=== PATIENT | male | born 1990 | race Caucasian/White ===

== ENCOUNTER 2019-05-10 09:16 | Observation (INO) ==
--- NOTE | 2019-05-01 14:26 | PAT Medication Instructions ---
Medication Instructions Date of Service May 01, 2019 Home Medications Medication Instructions Recorded omeprazole 40 mg capsule,delayed 40 mg PO BID #180 cap 11/16/18 release hydrocodone 5 mg-acetaminophen 325 1 tab PO Q4H PRN 3 Days #18 tab 04/24/19 mg tablet omeprazole 40 mg capsule,delayed release 40 mg PO BID hydrocodone 5 mg-acetaminophen 325 mg tablet 1 tab PO Q4H PRN sertraline 25 mg PO QAM Take morning of surgery With a small sip of water, OTHERWISE NOTHING TO EAT OR DRINK AFTER MIDNIGHT: omeprazole 40 mg capsule,delayed release 40 mg PO BID hydrocodone 5 mg-acetaminophen 325 mg tablet 1 tab PO Q4H PRN (if needed, may be taken up to four hours before surgery) sertraline 25 mg PO QAM Other Notes If you have any questions please call us at [phone] or [phone] or [phone] or [phone]
--- NOTE | 2019-05-02 13:18 | Anesthesiology Consultation ---
Date of Service May 02, 2019 Assessment & Plan (1) Encounter for pre-operative examination: Chart Review Chart Review: Acceptable Risk for Surgery (pending pre op labs being done at [facility]) and Patient seen in Pre Admission Testing Teaching & Discussion Instructed NPO after midnight before surgery, except medications with 15 cc of water. Medication instructions provided according to the PAT guidelines. History Surgery Operation Date: 05/10/19 10:50 Proposed Procedures p Abdominoplasty - Jolene Walton MD Height/Weight Height: 5 ft 10 in Weight: 108.7 kg Allergies Allergy/AdvReac Type Severity Reaction Status Date / Time codeine Allergy HIVES Verified 05/02/19 13:11 morphine Allergy HIVES Verified 05/02/19 13:11 Medications Home Medications Medication Instructions Recorded Confirmed Last Taken omeprazole 40 mg capsule,delayed 40 mg PO BID #180 cap 11/16/18 04/28/19 Unknown release hydrocodone 5 mg-acetaminophen 325 1 tab PO Q4H PRN 3 Days #18 tab 04/24/19 04/28/19 Unknown mg tablet sertraline 25 mg PO QAM 04/28/19 04/28/19 Unknown Past Medical History Medical History (Updated 05/02/19 @ 13:16 by Jeffrey Louie) Asthma as child GERD (gastroesophageal reflux disease) Exercise / Class Metabolic Activity 1 > 8 Run/Swim/Ski/Tennis Past Surgical History Surgical History (Updated 05/02/19 @ 13:12 by Jeffrey Louie) History of esophagogastroduodenoscopy WITH DILITATION, SEVERAL TIMES History of liver biopsy age 13 dx fatty liver History of shoulder surgery right shoulder Past Anesthesia History No Hx of Anesthesia Complications and No Family Hx of Anesthesia Complications History of PONV No Hx of PONV and No Hx of Motion Sickness Social History Smoking Status: Never smoker Do You Dip or Chew Tobacco: No Hx Alcohol Use: No Hx Substance Use: No substance use type: does not use Review of Systems Pt denies any recent chest pain, shortness of breath, palpitations, cough, fever or URI. Physical Exam Vital Signs BP: 108/63 P: 65bpm SPO2: 97% RA T: 97.6 F R: 16 ENMT Mouth: + chipped teeth (one front upper) and + macroglossia; no dental restorations and no loose teeth Thyromental Distance: < 3.5 Finger Breadths (3) Mallampati Class: III Neck normal visual inspection; neck extension not limited Respiratory normal respiratory effort Auscultation: lungs clear to auscultation bilaterally Cardiovascular Rate/Rhythm: regular rate and regular rhythm Heart Sounds: no murmur
[~2019-05-10 09:16] MED LIST: CEFAZOLIN 2000MG 2,000 MG/15 ML SYR IV SCH; LR 15ML/HR IV SCH
[2019-05-10] MEDS ORDERED: ONDANSETRON INJ 2 MG/ML 2 ML VIAL IV PRN ×2 (10:19→14:45)
[2019-05-10] MEDS ORDERED: HYDROmorphone INJ 2 MG/ML SYR/VIAL IV PRN (10:19)
[2019-05-10] MEDS ORDERED: ePHEDrine sulfate 50 MG/ML AMP IV PRN (10:19)
[2019-05-10] MEDS ORDERED: ATROPINE SULFATE 0.1 MG/ML 10ML SYR IV PRN (10:19)
[2019-05-10] MEDS ORDERED: fentaNYL citrate 100 MCG/2 ML VIAL ONE (10:52)
[2019-05-10] MEDS ORDERED: MIDAZOLAM HCL 1 MG/ML 2ML VIAL ONE (10:52)
--- NOTE | 2019-05-10 11:04 | History & Physical Bridge Note ---
Date of Service May 10, 2019 History & Physical Bridge Note I have examined the patient, reviewed the History & Physical and in the interval since the performance of the History & Physical I have noted the following changes of clinical significance: no changes noted
[2019-05-10] MEDS ORDERED: LIDOCAINE/EPINEPHRINE 1% 20 ML VIAL ONE (11:24)
[2019-05-10] MEDS ORDERED: BUPIVACAINE 0.25% 30 ML VIAL ONE (11:24)
[2019-05-10] MEDS ORDERED: HYDROmorphone INJ 2 MG/ML SYR/VIAL ONE (12:09)
[2019-05-10] MEDS ORDERED: ACETAMINOPHEN 1000 MG/100 ML IV IV ONE (12:43)
[2019-05-10] MEDS ORDERED: ROCURONIUM BROMIDE 10 MG/ML 5 ML VIAL ONE (12:49)
[2019-05-10] MEDS ORDERED: KETAMINE HCL INJ 50 MG/ML 10 ML VIAL ONE (12:49)
[2019-05-10] MEDS ORDERED: ONDANSETRON INJ 2 MG/ML 2 ML VIAL ONE (13:10)
[2019-05-10] MEDS ORDERED: raNITIdine HCl 25 MG/ML VIAL IV ONE (13:10)
[2019-05-10] MEDS ORDERED: LARYING-O-JET KIT (LTA) ONE (13:10)
[2019-05-10] MEDS ORDERED: LIDOCAINE HCL 2% 2 ML VIAL/AMP(20MG/ML) INFIL ONE (13:10)
[2019-05-10] MEDS ORDERED: GLYCOPYRROLATE 0.2 MG/ML VIAL ONE (13:10)
[2019-05-10] MEDS ORDERED: METOCLOPRAMIDE HCL INJ 5 MG/ML 2 ML VIAL ONE (13:10)
[2019-05-10] MEDS ORDERED: PROPOFOL IV EMULSION 10 MG/ML 20 ML VIAL IV ONE (13:10)
[2019-05-10] MEDS ORDERED: DiphenhydrAMINE HCL 50 MG/ML VIAL ONE (13:10)
[2019-05-10] MEDS ORDERED: NEOSTIGMINE METHYLSULFATE 5 MG/5 ML SYR ONE (13:10)
--- NOTE | 2019-05-10 14:38 | Post Operative Brief Note ---
PG Immediate Post Op with CF Date of Surgery May 10, 2019 Pre & Post Diagnosis Operation Date: 05/10/19 10:50 Pre-Op Diagnosis: Encounter for Cosmetic Surgery Post-Op Diagnosis: Encounter for Cosmetic Surgery I identified the patient and participated in the time-out.: Yes Procedure Operation Date: 05/10/19 10:50 Actual Procedures p Abdominoplasty(Not Applicable) - Jolene Walton MD Surgeon Jolene Walton MD Candle Molder Jasmyne Hairston PA-C Estimated Blood Loss 20 Findings Consistent with Post-Op Diagnosis Specimens Specimen Description: none per surgeon Drains Stanford Catheter (16 Fr 10ml balloon LATEX free) and Gerardo-Espinosa Drain (x2)
[2019-05-10] MEDS ORDERED: DiphenhydrAMINE HCL 50 MG/ML VIAL IV PRN (14:45)
[2019-05-10] MEDS ORDERED: LORazepam 0.5 MG TAB PO PRN (14:45)
--- NOTE | 2019-05-10 14:45 | Operative Report ---
PG Post Operative Report Pre & Post Diagnosis Operation Date: 05/10/19 10:50 Pre-Op Diagnosis: Encounter for Cosmetic Surgery Post-Op Diagnosis: Encounter for Cosmetic Surgery I identified the patient and participated in the time-out.: Yes Procedure Operation Date: 05/10/19 10:50 Actual Procedures p Abdominoplasty(Not Applicable) - Jolene Walton MD Surgeon Jolene Walton MD Ion Exchange Operator Jasmyne Hairston PA-C Estimated Blood Loss 20 Findings Consistent with Post-Op Diagnosis Specimens none Drains ERLIN x2 Anesthesia Type General Complications none Disposition Disposition: Recovery Room Indications s/p massive weight loss, desiring cosmetic improvement in abdominal wall laxity Description of Procedure Risks, benefits, and alternatives of the procedure were explained to the patient who agreed and signed consent. He was identified and marked in the preoperative holding area. He was brought to the operating room where He was positioned supine and placed under general anesthesia without incident. Stanford catheter was placed. Surgical site was prepped and draped sterilely. A time-out procedure was performed. I reassessed my markings which included a lower horizontal abdominal incision at the waistline sulcus. Incision was marked bilaterally to the ASIS. I began by injecting 1% lidocaine with epinephrine along the planned incision. 15-blade scalpel was used to circumscribe the umbilicus. The lower abdominal incision was made using a 15-blade scalpel to incise epidermis and superficial dermis followed by electrocautery to incise deep dermis, subcutaneous fat, Harleen's fascia down to the abdominal wall. Care was taken to bevel superiorly in order to avoid encountering the inguinal region. Electrocautery was used to elevate the anterior abdominal skin flap ligating the perforating vessels with 3-0 Vicryl ties and electrocautery. Dissection was carried up to the level of the umbilicus in the midline. A vertical midline incision was then made from the incision to the umbilicus and divided in the midline using electrocautery. The umbilicus was then dissected out using electrocautery down to abdominal wall. The umbilical stalk appeared viable throughout the procedure. Dissection was continued superiorly to the xyphoid process, narrowing dissection above the umblicus. Plication of the rectus diastasis was performed using 0 Prolene [id number] sutures both above and below the umbilicus. It should be noted that this plication was performed to reapproximate the rectus muscles in the m idline, but not over tighten the area in order to avoid feminization of the waistline. Additionally, I only plicated the area of true visible diastasis, I did not plicate all the way to the xiphoid process. A running 0 Prolene suture was used to reinforce the repair both above and below the umbilicus. At this point, the bed was flexed and the mid portion of the superior skin flap was inset above the mons pubis using 2-0 Vicryl suture. Skin flaps were marked for excision. A 15-blade scalpel was used to make these incisions and the incision was deepened through dermis, subcutaneous fat, Harleen's fat using electrocautery. A 15 Maldivian Daniel drains were placed in the wound bed and brought out through a separate stab incision in the mons pubis. The drains were sutured into place using 3-0 nylon. The umbilicus was brought out through an inverted, rounded angled triangular incision in the abdominal wall. This was performed using a 15-blade scalpel. Prior to closure, a total of 10 mL of 0.25% Marcaine plain were injected into the fascia as well as along the incisions. Wound closure was then begun lateral to medial using 2-0 Vicryl Harleen's fascia sutures, 2-0 Vicryl deep dermal sutures, 2-0 PDO running superficial Quill suture, 3-0 Monocryl running subcuticular suture. Umbilicus was brought out through the inverted triangle incision and was sutured into place using 4-0 chromic half buried horizontal mattress sutures. The umbilicus was dressed using Xeroform and the incision was dressed using Dermabond Prineo followed by dry dressings and an abdominal binder. Patient tolerated the procedure well. He was extubated and transferred to the recovery room in satisfactory condition. Jasmyne Hairston PA-C was present and scrubbed throughout the entire procedure and was instrumental in providing retraction of the abdominal flap and assisting in simultaneous wound closure. I attest to the content of the Intraoperative Record and any orders documented therein. Any exceptions are noted below.
[2019-05-10] MEDS: fentaNYL citrate 100 MCG/2 ML VIAL IV PRN ×4 (14:50→15:05)
[2019-05-10] MEDS ORDERED: HYDROCODONE/ACETAMOPHEN 5/325MG TAB PO PRN (14:52)
[2019-05-10] MEDS ORDERED: MEPERIDINE HCL 50 MG/ML CARP IV PRN (14:57)
--- NOTE | 2019-05-10 15:22 | Anesthesiology Progress Note ---
Date of Service May 10, 2019 Anesthesia Post Procedure Vital Signs Vital Signs: Temp Pulse Pulse Resp BP BP Pulse Ox 05/10/19 15:15 98.8 F 80 16 136/74 98 05/10/19 15:05 89 16 135/70 94 05/10/19 14:55 74 16 134/68 98 05/10/19 14:46 100.0 F H 78 16 145/58 H 98 05/10/19 09:37 97.9 F 68 18 136/68 97 Transfer of Care Handoff Completed per policy Notes Mental Status: alert / awake / arousable and participated in evaluation Patient Amnestic to Procedure: Yes Nausea / Vomiting: adequately controlled Pain: adequately controlled Airway Patency, RR, SpO2: stable & adequate BP & HR: stable & adequate Hydration State: stable & adequate Anesthetic Complications: no major complications apparent and Pt Satisfied with anesthetic care
[2019-05-10] MEDS: D5W AND 1/2NSS + 20MEQ KCL 20 MEQ/1,000 ML BAG IV SCH (16:42)
[2019-05-10] MEDS: CEFAZOLIN 2000MG 2,000 MG/15 ML SYR IV SCH (19:44)
[2019-05-10] MEDS: PROMETHAZINE HCL 12.5 MG in SODIUM CHLORIDE 0.9% 50 ML IV PRN (20:52)
[2019-05-11] MEDS: D5W AND 1/2NSS + 20MEQ KCL 20 MEQ/1,000 ML BAG IV SCH (01:39)
[2019-05-11] MEDS: CEFAZOLIN 2000MG 2,000 MG/15 ML SYR IV SCH (03:55)
[2019-05-11] MEDS: PROMETHAZINE HCL 12.5 MG in SODIUM CHLORIDE 0.9% 50 ML IV PRN ×2 (05:55→12:32)
[2019-05-11] MEDS: HYDROCODONE/ACETAMOPHEN 5/325MG TAB PO PRN ×2 (06:00→10:10)
[2019-05-11 07:48] VITALS: BP 124/76; PULSE 79; TEMP 97.5; O2SAT 95
[2019-05-11] MEDS ORDERED: MULTIVITAMIN TAB PO SCH (09:00)
[2019-05-11] MEDS ORDERED: SERTRALINE HCL 50 MG TABLET PO SCH (09:00)
[2019-05-11] MEDS ORDERED: ENOXAPARIN INJ 40 MG/0.4 ML SYR SQ SCH (09:00)
--- NOTE | 2019-05-11 09:25 | Surgery Progress Note ---
Date of Service May 11, 2019 Assessment & Plan (1) S/P abdominoplasty: Garcia is POD #1 s/p Abdominoplasty. He is doing well. Stanford removed this AM. He did have some post-op nausea, which he attributes to Melvin. He would like to have pain medication switched to Tramadol for home, which I will send to [facility]. I will also send some Zofran in to pharmacy as well. Patient ok for discharge to home today. Drains will remain at discharge. Drain management, including recording drainage amounts, reviewed with patient and patient's . Both verbal and written discharge instructions reviewed. All questions answered. Patient to follow-up in clinic tomorrow. Subjective Garcia is resting comfortably. He reports pain is a 5-6/10. He did have some post-op nausea and vomiting, but reports that that has resolved. He believes that the nausea and vomiting is due to the Melvin. He is tolerating regular diet. Physical Exam Physical Exam: on physical exam- abdominal binder in place- opened to examine dressings. Surgical dressings are clean, dry, intact. ERLIN drains x [address] with serosang drainage. Results & Data Vital Signs (Past 12 Hours) Vital Signs Temp Pulse Resp BP Pulse Ox 05/11/19 07:25 36.4 C L 79 16 124/76 95 05/11/19 02:54 36.9 C 89 16 132/84 94 05/10/19 23:33 36.7 C 93 H 16 139/78 95 PG Care Time/CCT Total # of Minutes Spent Total Time Spent with Patient: Total time spent is greater than 50% in coordination of care (as documented) at patient's floor/unit and/or counseling patient:
[2019-05-11] MEDS ORDERED: TRAMADOL HCL 50 MG TABLET PO PRN (09:45)
--- NOTE | 2019-05-11 15:26 | Discharge Summary ---
Date of Service May 11, 2019 Admission HPI Per Admitting Provider Please see admission H & P. Admission Exam Per Admitting Provider Please see admission H & P. Principal Diagnosis Encounter for Cosmetic Surgery. Discharge Exam On physical exam- ERLIN drains x [address] with bloody drainage. Abdominal binder in place, unclasped so that surgical dressings can be examined. Surgical dressings in place. Dressings are clean, dry, and intact. Discharge Data Allergies Allergy/AdvReac Type Severity Reaction Status Date / Time codeine Allergy HIVES Verified 05/10/19 09:39 morphine Allergy HIVES Verified 05/10/19 09:39 Procedures Performed Operation Date: 05/10/19 10:50 Actual Procedures p Abdominoplasty(Not Applicable) - Jolene Walton MD Hospital Course (1) S/P abdominoplasty: Garcia is a 28-year-old male with abdominal pannus. He was taken to the OR and underwent Abdominoplasty. Stanford catheter was placed intraoperatively. There were no intraoperative complications. He was taken to recovery and transferred to med/surg for observation. On POD #1, his pain was controlled with PO pain medication. Stanford catheter was removed at 0600 on POD #1. He did have some post-op nausea, which he attributed to [place]. He would like to have pain medica tion switched to Tramadol for home, which was sent to [facility]. Phenergan was also sent to [facility] pharmacy. He was tolerating a regular diet, was voiding on own and ambulating in room. On exam, his vitals were stable. Abdominal binder was unclasped and surgical dressings were clean, dry, intact. ERLIN drains x [address]. Drain management, including recording drainage amounts, was reviewed with patient and patient's . He was discharged home with instructions to follow-up in the office in 1 day. All questions were answered. Total Time Total Time Spent Total Time Spent (In Minutes): 5 Discharge Plan Discharge Items Patient Disposition: Home - Self-Care Reason For Visit: Cosmetic Surgery Abdominal Pannus Discharge Diagnosis: Cosmetic Surgery Abdominal Pannus Activity: As commented below Non-emergency contact: Surgeon Call non-emergency contact if: you have any medication questions, your pain is not controlled, your temperature is above 101.5, your wound has increased redness and your wound has increased drainage Follow-up/Referrals: PCP,NO [Primary Care Provider] - Diet: Regular Addtl Attending Provider Instructions: ACTIVITY RECOMMENDATIONS: __Normal activities _X_No bending, lifting or straining __No driving _X_Driving allowed when you are off pain medications X__Walking permitted __You should have help at home for ___ days DRESSINGS: __No dressings required X__Keep dressings dry/in place until first office visit- Keep surgical dressings dry. __Remove dressings ___ and leave dressings off __Apply ice ___ days __Remove dressings and reapply garment __Apply antibiotic ointment (Bacitracin, Neosporin, etc) to wounds 3-4 times/day for 10 days BATHING: _X_Keep dressings dry _X_Sponge bathing permitted- Keep surgical dressings dry. __Showering permitted _X_No swimming, hot tubs or soaking in a tub MEDICATIONS: Resume previous medications unless instructed otherwise by your surgeon. _X_Do not use aspirin, Motrin, Advil or Ibuprofen as these may promote bleeding. Please use Tylenol. _X_Prescription(s) provided: Prescription for post-op pain medication provided at last office visit. Script for post-op nausea sent to pharmacy today. OTHER INSTRUCTIONS: _X_Record drain output 2-3 times per day SPECIAL CARE INSTRUCTIONS: * It is normal to have a mild fever after surgery. If your temperature is higher than 101.5 degrees F, please call the office at [phone]. * Constipation is a typical side effect of pain medication. An [id number] stool softener will help relieve this. * Leaking around surgical drains may occur and should not cause concern. Sometimes these drains become clogged. If this happens, remove the bulb and milk the clot out of the tube, then replace the bulb. * Drainage from wounds after liposuction is normal and should be expected. Garments will become soiled. You should protect furniture and bedding. This drainage should mostly subside within 2-3 days. Leave garments in place unless instructed to remove them. * If you have unusual drainage from a wound or are concerned you have an infection or have any questions or concerns, please call the office at [phone]. FOLLOW UP VISIT: If not already scheduled, please call the office, , when you return home after surgery to schedule an appointment to be seen in _1__ days. Pending Studies at Discharge: No Stand-Alone Forms: My [facility] Medications and DC Order Prescriptions: New tramadol 50 mg tablet 50 mg PO Q4H PRN (Reason: pain) 3 Days Qty: 18 RF: 0 Continued omeprazole 40 mg capsule,delayed release(DR/EC) 40 mg PO BID Qty: 60 RF: 1 hydrocodone-acetaminophen [[place]] 5-325 mg tablet 1 tab PO Q4H PRN (Reason: pain) 3 Days Qty: 18 RF: 0 sertraline 25 mg tablet 25 mg PO QAM RF: 0 No Action promethazine 12.5 mg tablet 12.5 mg PO Q6H PRN (Reason: nausea and vomiting) 3 Days Qty: 12 RF: 0 Discharge Orders: Discharge Order (Routine); Ordered 05/11/19 Ordered By: Jasmyne Hairston Admission Data Admit Date/Time: 05/10/19 14:45 Attending Provider: Jolene Walton Admit Provider: Jolene Walton Primary Care Provider: PCP,NO Other Interventions: Discharge Summary Assessment (RN) Last Done: 05/11/19 10:04 DC Date/Time DO NOT enter until pt leaves facility: 05/11/19 13:16
== END 2019-05-11 13:16 | disposition home or self-care (01) ==
LOC: ASU 09:16 → 3N 09:16
DX: K21.9 Gastro-esophageal reflux disease without esophagitis; E65 Localized adiposity